=== PATIENT | female | born 1965 | race American Indian/Alaskan Native ===

== ENCOUNTER 2020-09-08 13:23 | Emergency (ER) | payer BC ==
[2020-09-08 14:16] LABS: Hematocrit 37.6 % (36.0-45.0); Lymphocytes % 29.5 % (15.3-44.8); MPV 7.4 fL (7.6-11.3); RBC Red Blood Cell Count 4.18 M/uL (3.86-4.86)
[2020-09-08 14:17] LABS: Absolute Lymphocytes (CBC) 2.2 K/uL (0.7-4.9)
[2020-09-08 14:28] LABS: Protime INR 0.91
[2020-09-08 14:39] LABS: ALT/SGPT 38 U/L (12-78); AST/SGOT 21 U/L (15-37); Albumin 3.6 g/dL (3.4-5.0); Alkaline Phosphatase 71 U/L (45-117); BUN Blood Urea Nitrogen 12 mg/dL (7-18); Bicarbonate 27 mmol/L (21-32); Bilirubin Direct < 0.1 mg/dL (0-0.2); Bilirubin Total 0.3 mg/dL (0.2-1.0); Glucose Level 102 mg/dL (74-106); Magnesium 2.1 mg/dL (1.8-2.4); NT PRO-BNP 39 pg/mL (<125); Potassium 3.6 mmol/L (3.5-5.1); Protein, Total 6.7 g/dL (6.4-8.2); Sodium Level 140 mmol/L (136-145); Troponin (Emerg Dept Use Only) < 0.02 ng/mL (0.0-0.045)
--- NOTE | 2020-09-08 16:22 | RAD REPORT ---
EXAM DESCRIPTION: RAD - Chest Single View - 09/08/2020 3:58 pm CLINICAL HISTORY: CHEST PAIN COMPARISON: None TECHNIQUE: AP portable chest image was obtained 09/08/2020 3:58 pm . FINDINGS: Lungs are clear. Heart and vasculature are normal. No measurable pleural effusion and no p neumothorax. No acute bony abnormality seen. No acute aortic findings suspected. IMPRESSION: No acute cardiopulmonary process.
--- NOTE | 2020-09-08 16:38 | EDPHYS ---
Physician Documentation [facility] Name: Nancy Acosta Age: 54 yrs Sex: Female : 1965 Arrival Date: 09/08/2020 Time: 13:26 Bed 19 Private MD: ED Physician Nelda Alba HPI: 09/08 13:58 This 54 yrs old Other Female presents to ER via Ambulatory with complaints of Chest jm Pain. 13:58 The patient or guardian reports chest pain that is located primarily in the substernal [facility] area. Onset: gradually, 3 day(s) ago. The pain does not radiate. Associated signs and symptoms: Pertinent positives: cough, Pertinent negatives: abdominal pain, lower extremity swelling, lightheadedness, palpitations, shortness of breath. The chest pain is described as aching. Duration: The patient or guardian reports multiple episodes. This is a 56 year old female with a history of hlp, uc that presents to the ED with complaints of substernal chest pain beginning approx 3 evening ago. Worse when laying down at night. Non exertional. Denies sob, fever, but does have complains of left sided chest congestion.. OUTREACH COORDINATOR: 17:04 LMP N/A - Hysterectomy ca1 Historical: - Allergies: 13:37 actifed; ss - PMHx: 13:37 ulcerative colitis; High Cholesterol; ss - PSHx: 13:37 Hysterectomy; ss - Immunization history:: Client reports having NOT received the Covid vaccine. Flu vaccine is not up to date. - Social history:: Smoking status: Patient denies any tobacco usage or history of. ROS: 13:58 Constitutional: Negative for fever, chills, and weight loss. jmm 13:58 Cardiovascular: Positive for chest pain. 13:58 Respiratory: Positive for cough. 13:58 All other systems are negative. Exam: 13:58 Constitutional: This is a well developed, well nourished patient who is awake, alert, jmm and in no acute distress. Head/Face: atraumatic. Eyes: EOMI, no conjunctival erythema appreciated ENT: Moist Mucus Membranes Neck: Trachea midline, Supple Chest/axilla: Normal chest wall appearance and motion. Cardiovascular: Regular rate and rhythm. No edema appreciated Respiratory: Normal respirations, no respiratory distress appreciated Abdomen/GI: Non distended, soft Back: Normal ROM Skin: General appearance color normal MS/ Extremity: Moves all extremities, no obvious deformities appreciated, no edema noted to the lower extremities Neuro: Awake and alert, normal gait Psych: Behavior is normal, Mood is normal, Patient is cooperative and pleasant 14:06 ECG was reviewed by the Attending Physician. [facility] Vital Signs: 13:31 BP 151 / 84; Pulse 75; Resp 17; Temp 97.9; Pulse Ox 97% on R/A; Weight 98.88 kg; Height ss 5 ft. 6 in. (167.64 cm); Pain 1/10; 14:34 BP 131 / 79; Pulse 71; Resp 16 S; Pulse Ox 99% on R/A; ca1 15:53 BP 119 / 84; Pulse 71; Resp 16 S; Pulse Ox 98% on R/A; ca1 16:55 BP 113 / 76; Pulse 76; Resp 16 S; Pulse Ox 99% on R/A; ca1 13:31 Body Mass Index 35.19 (98.88 kg, 167.64 cm) MDM: 13:57 Patient medically screened. [facility] 16:35 The patient was not given aspirin in the Emergency Department. Data reviewed: vital [facility] signs, nurses notes, lab test result(s), EKG, radiologic studies. Counseling: I had a detailed discussion with the patient and/or guardian regarding: the historical points, exam findings, and any diagnostic results supporting the discharge/admit diagnosis, lab results, radiology results, the need for outpatient follow up, the need for further work-up and treatment in the hospital. Refusal of service: The patient/guardian displays adequate decision making capability and despite a detailed discussion of alternatives, benefits, risks, and consequences refuses: Admission to the hospital for further work-up and treatment. ED course: HEART SCORE = 3. Patient advised to follow up with cardiology for further evaluation and otherwise given strict return precautions. Patient understood and agrees with the plan of care. . 09/08 13:57 Order name: Basic Metabolic Panel; Complete Time: 15:00 [facility] 09/08 13:57 Order name: CBC with Diff; Complete Time: 15:00 [facility] 09/08 13:57 Order name: LFT's; Complete Time: 15:00 [facility] 09/08 13:57 Order name: Magnesium; Complete Time: 15:00 [facility] 09/08 13:57 Order name: NT PRO-BNP; Complete Time: 15:00 [facility] 09/08 13:57 Order name: PT-INR; Complete Time: 15:00 [facility] 09/08 13:57 Order name: Troponin (emerg Dept Use Only); Complete Time: 15:00 [facility] 09/08 13:57 Order name: XRAY Chest (1 view); Complete Time: 16:28 [facility] 09/08 13:57 Order name: EKG; Complete Time: 13:58 09/08 13:57 Order name: Cardiac monitoring; Complete Time: 14:07 09/08 13:57 Order name: EKG - Nurse/Tech; Complete Time: 14:07 [facility] 09/08 13:57 Order name: IV Saline Lock; Complete Time: 14:07 [facility] 09/08 13:57 Order name: Labs collected and sent; Complete Time: 14:07 [facility] 09/08 13:57 Order name: D-Dimer; Complete Time: 15:00 [facility] 09/08 13:57 Order name: O2 Per Protocol; Complete Time: 14: [facility] 09/08 13:57 Order name: O2 Sat Monitoring; Complete Time: 14:07 jmm EC:06 Rate is 68 beats/min. Rhythm is regular. QRS Davin is Normal. VT interval is normal. QRS jmm interval is normal. QT interval is normal. No Q waves. T waves are Normal. No ST changes noted. Reviewed by me. Administered Medications: No medications were administered Disposition: 09/09 14:37 Co-signature as Attending Physician, Nelda Alba MD. sc2 Disposition: 09/08/20 16:37 Discharged to Home. Impression: Chest pain, unspecified. - Condition is Stable. - Discharge Instructions: Nonspecific Chest Pain. - Medication Reconciliation Form, Thank You Letter, Antibiotic Education, Prescription Opioid Use form. - Follow up: Fernando Pierce MD; When: 2 - 3 days; Reason: Recheck today's complaints, Continuance of care, Re-evaluation by your physician. Signatures: Dispatcher [employer] EDMS Javier Tinajero PA PA jmm Smirch, Shelby, RN RN ss Alzahri, Mohammad, MD MD [facility] Acob, Roselia, RN RN ca1 Corrections: (The following items were deleted from the chart) 09/08 17:04 16:37 09/08/2020 16:37 Discharged to Home. Impression: Chest pain, unspecified. ca1 Condition is Stable. Forms are Medication Reconciliation Form, Thank You Letter, Antibiotic Education, Prescription Opioid Use. Follow up: Fernando Pierce; When: 2 - 3 days; Reason: Recheck today's complaints, Continuance of care, Re-evaluation by your physician. nadira
--- NOTE | 2020-09-08 16:38 | ER ---
Nurse's Notes [facility] Name: Nancy Acosta Age: 54 yrs Sex: Female : 1965 Arrival Date: 09/08/2020 Time: 13:26 Bed 19 Private MD: Diagnosis: Chest pain, unspecified Presentation: 09/08 13:31 Chief complaint: Patient states: Mid and just L of sternal border chest pain off/on for ss past 3 nights. Slight twinges of pain throughout the day, not much though. States she feels like her L lung is congested. No major cough or fever. Coronavirus screen: Client denies travel out of the [place] in the last 14 days. Client presents with at least one sign or symptom that may indicate coronavirus-19. Standard/surgical mask placed on the client. Ebola Screen: Patient denies travel to an Ebola-affected area in the 21 days before illness onset. Initial Sepsis Screen: Does the patient meet any 2 criteria? No. Patient's initial sepsis screen is negative. Does the patient have a suspected source of infection? No. Patient's initial sepsis screen is negative. Risk Assessment: Do you want to hurt yourself or someone else? Patient reports no desire to harm self or others. Onset of symptoms was September 05, 2020. 13:31 Method Of Arrival: Ambulatory ss 13:31 Acuity: AMBERLY 3 ss HOSPITALITY INTERNSHIP: 17:04 LMP N/A - Hysterectomy ca1 Historical: - Allergies: 13:37 actifed; ss - PMHx: 13:37 ulcerative colitis; High Cholesterol; ss - PSHx: 13:37 Hysterectomy; ss - Immunization history:: Client reports having NOT received the Covid vaccine. Flu vaccine is not up to date. - Social history:: Smoking status: Patient denies any tobacco usage or history of. Screenin:45 Abuse screen: Denies threats or abuse. Denies injuries from another. Nutritional ca1 screening: No deficits noted. Tuberculosis screening: No symptoms or risk factors identified. Fall Risk IV access (20 points). Assessment: 13:45 General: Appears in no apparent distress. comfortable, Behavior is calm, cooperative, ca1 appropriate for age. Pain: Complains of pain in anterior aspect of left upper chest and mid-sternal area Pain does not radiate. Pain currently is 1 out of 10 on a pain scale. Quality of pain is described as pressure, Pain began 2-3 days ago. Is intermittent. Neuro: Level of Consciousness is awake, alert, obeys commands, Oriented to person, place, time, situation. Cardiovascular: Heart tones S1 S2 present Capillary refill < 3 seconds Patient's skin is warm and dry. Rhythm is sinus rhythm. Respiratory: Airway is patent Respiratory effort is even, unlabored, Respiratory pattern is regular, symmetrical, Breath sounds are clear bilaterally. GI: Abdomen is round non-distended, Bowel sounds present X 4 quads. Abd is soft and non tender X 4 quads. : No signs and/or symptoms were reported regarding the genitourinary system. EENT: No signs and/or symptoms were reported regarding the EENT system. Derm: Skin is intact, is healthy with good turgor, Skin is pink, warm \T\ dry. Musculoskeletal: Circulation, motion, and sensation intact. Capillary refill < 3 seconds. 14:34 Reassessment: Patient appears in no apparent distress at this time. Patient and/or ca1 family updated on plan of care and expected duration. Pain level reassessed. Patient is alert, oriented x 3, equal unlabored respirations, skin warm/dry/pink. 15:53 Reassessment: Patient appears in no apparent distress at this time. Patient and/or ca1 family updated on plan of care and expected duration. Pain level reassessed. Patient is alert, oriented x 3, equal unlabored respirations, skin warm/dry/pink. 16:55 Reassessment: Patient appears in no apparent distress at this time. Patient and/or ca1 family updated on plan of care and expected duration. Pain level reassessed. Patient is alert, oriented x 3, equal unlabored respirations, skin warm/dry/pink. Vital Signs: 13:31 BP 151 / 84; Pulse 75; Resp 17; Temp 97.9; Pulse Ox 97% on R/A; Weight 98.88 kg; Height ss 5 ft. 6 in. (167.64 cm); Pain 04/02; 14:34 BP 131 / 79; Pulse 71; Resp 16 S; Pulse Ox 99% on R/A; ca1 15:53 BP 119 / 84; Pulse 71; Resp 16 S; Pulse Ox 98% on R/A; ca1 16:55 BP 113 / 76; Pulse 76; Resp 16 S; Pulse Ox 99% on R/A; ca1 13:31 Body Mass Index 35.19 (98.88 kg, 167.64 cm) ED Course: 13:26 Patient arrived in ED. bp1 13:34 Triage completed. ss 13:38 Arm band placed on. ss 13:44 Roselia Silvestre, RN is Primary Nurse. ca1 13:45 Javier Tinajero PA is PHCP. [facility] 13:45 Nelda Alba MD is Attending Physician. jmm 13:45 Patient has correct armband on for positive identification. Placed in gown. Bed in low ca1 position. Call light in reach. Side rails up X2. product support technician on. Pulse ox on. NIBP on. Warm blanket given. 14:07 No provider procedures requiring assistance completed. Initial lab(s) drawn, by id, ca1 sent to lab. Inserted saline lock: 22 gauge in left antecubital area, using aseptic technique. Blood collected. Patient maintains SpO2 saturation greater than 95% on room air. 15:58 XRAY Chest (1 view) In Process Unspecified. EDMS 16:37 Fernando Pierce MD is Referral Physician. jmm 17:04 IV discontinued, intact, bleeding controlled, No redness/swelling at site. Pressure ca1 dressing applied. Administered Medications: No medications were administered Outcome: 16:37 Discharge ordered by . jmm 17:04 Discharged to home ambulatory. ca1 17:04 Condition: stable 17:04 Discharge instructions given to patient, Instructed on discharge instructions, follow up and referral plans. Demonstrated understanding of instructions, follow-up care. 17:04 Patient left the ED. ca1 Signatures: Dispatcher [employer] EDMS Javier Tinajero PA PA jmm Smirch, Shelby, RN RN Roselia Silvestre, ISIAH RN ca1 Binta Rosario bp1
[2020-09-08 17:39] VITALS: TEMP 97.9
[2020-09-08 17:51] VITALS: BP 113/76; O2SAT 99
--- NOTE | 2020-09-09 09:45 | EKG ---
Test Date: 2020-09-08 Test Time: 13:57:40 Beverage Host: ANNA MEASUREMENT RESULTS: Intervals: Rate: 68 MN: 176 QRSD: 82 QT: 396 QTc: 421 [place]: P: 35 MN: 176 QRS: 43 T: 36 INTERPRETIVE STATEMENTS: Normal sinus rhythm Normal ECG No previous ECG available for comparison Electronically Signed On 09-09-20 09:43:40 CDT by Hiram Niño
== END 2020-09-08 17:04 | disposition home or self-care (01) ==
LOC: ER 13:23
DX: R07.9 Chest pain, unspecified (principal); K51.90 Ulcerative colitis, unspecified, without complications; E78.00 Pure hypercholesterolemia, unspecified
CPT/HCPCS: 36415; 71045; 80048; 80076; 83735; 83880; 84484; 85025; 85379; 85610; 93005